=== PATIENT | female | born 1980 | race Asian ===

== ENCOUNTER → 2020-12-20 10:48 | Outpatient (CLI) | payer OTHER, SELFPAY ==
--- NOTE | 2020-12-20 10:58 | DI.US.S_ITS ---
PROCEDURE: US THYROID INDICATIONS: NECK LUMP TECHNIQUE: Real-time scanning was performed of the thyroid gland, with image documentation. COMPARISON: None. FINDINGS: Right: Thyroid lobe measures 5.1 x 1.3 x 0.9 cm, and is homogeneous in echotexture. Left: Thyroid lobe measures 4.1 x 1.5 x 0.7 cm, and is homogenous in echotexture. Isthmus: 1.9 mm thick. Scanning in the areas of lump demonstrates no abnormality. IMPRESSION: 1. Normal thyroid ultrasound exam. 2. No abnormalities are identified in the areas of interest. If clinical symptoms persist or clinical suspicion for pathology is high, CT with contrast is suggested for further evaluation. Dictated by: Roxi England M.D. on 12/20/2020 at 12:23 Approved by: Roxi England M.D. on 12/20/2020 at 12:26
== END ==
PROVIDERS: PCP Internal Medicine; Referring Provider Internal Medicine; Visit Provider Internal Medicine
DX: R22.2 Localized swelling, mass and lump, trunk (principal)
CPT/HCPCS: 76536

== ENCOUNTER → 2021-02-22 14:58 | Outpatient (CLI) | payer OTHER, SELFPAY ==
[2021-02-22] MEDS: COVID-19 VACC #1, MRNA(MOD) 100 MCG/0.5 ML VIAL IM (15:08)
== END ==
PROVIDERS: PCP Internal Medicine; Visit Provider Internal Medicine
DX: Z23 Encounter for immunization (principal)
CPT/HCPCS: 0011A; 91301

== ENCOUNTER → 2021-03-22 14:57 | Outpatient (CLI) | payer OTHER, SELFPAY ==
[2021-03-22] MEDS: COVID-19 VACC #2, MRNA(MOD) 100 MCG/0.5 ML VIAL IM (15:12)
== END ==
PROVIDERS: PCP Internal Medicine; Visit Provider Internal Medicine
DX: Z23 Encounter for immunization (principal)
CPT/HCPCS: 0012A; 91301